=== PATIENT | male | born 2000 | race Caucasian/White ===

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

== ENCOUNTER 2022-05-08 08:18 | Emergency (ER) | payer OTHER, SELFPAY ==
[2022-05-08 08:19] VITALS: BP 121/79; PULSE 92; RESP 17; TEMP 36.7; O2SAT 100; BMI 17.6
--- NOTE | 2022-05-08 08:31 | EDS_ITS ---
HPI History of Present Illness Chief Complaint: Nausea/Vomiting Informant: patient and parent Narrative Narrative: Patient presents with nausea vomiting that started . He initially had diarrhea with this but that seems to have calm down. Last night he was feeling better. He is able to get some chicken noodle soup in. It seemed to be well. But now this morning he vomited again. No blood. He states he has no pain in the abdomen at all. No urinary symptoms. He has had subjective hot cold feelings but no measured fever. No cough congestion or myalgias. No known exposures to any illness. Mother is also concerned because his appetite has been down for a while. He is lost about 10 pounds over some intervening months. He states he is just not that hungry a lot so he just does not eat a lot. No vomiting or binging and purging. No [id number] meds supplements vitamins etc. PFSH PFSH Medical History no medical history Home Medications ondansetron 4 mg disintegrating tablet 4 mg PO Q8H PRN nausea and vomiting #10 tabs 05/08/22 [Rx Last Taken Unknown] Allergy/AdvReac Type Severity Reaction Status Date / Time No Known Allergies Allergy Verified 05/08/22 08:18 Surgical History no surgical history Social History Smoking Status: Never smoker ROS ROS ED Constitutional Constitutional ED: Reports subjective; Denies fever(s) ENT ENT ED: Denies rhinorrhea or sore throat Cardiovascular Cardiovascular: Denies chest pain Respiratory/Chest Respiratory/Chest: Denies cough or dyspnea Gastrointestinal Gastrointestinal: Reports diarrhea, nausea and vomiting; Denies abdominal pain or melena Genitourinary Genitourinary ED: Denies dysuria Musculoskeletal Musculoskeletal: Denies myalgias Integumentary Denies rash Endocrine Endocrinology: Denies polydipsia or polyuria Hematologic/Lymphatic Hematologic/Lymphatic: Denies anemia Allergic/Immunologic Allergic/Immunologic ED: Denies urticaria EXAM Physical Exam Const Vital Signs: 05/08/22 08:19 Temperature 98.0 F Temperature Source Temporal Pulse Rate 92 Respiratory Rate 17 Blood Pressure 121/79 H Blood Pressure Mean 93 Pulse Ox 100 Oxygen Delivery Method Room Air Positive well nourished and well developed; Negative for cachectic General Appearance ED: well developed and NAD; Negative for cachectic, cyanotic or pallor Nutritional Appearance: Negative for cachectic HEENT Reports dry mucous membranes HEENT Narrative: Very mildly dry mucous membranes. Mouth ED: Yes dry mucous membranes Mouth: dry mucous membranes Eyes General Eye ED: Negative for pale conjunctiva or scleral icterus Neck supple Chest Wall inspection of chest normal Resp normal respiratory effort Auscultation: Negative for rales, rhonchi or wheezes Cardio regular rate and regular rhythm GI normal to inspection, nondistended, normoactive bowel sounds, non-tender and non-distended; Negative for hepatosplenomegaly Back/Spine no CVA tenderness Extremity normal to inspection General Extremety ED: Negative for edema or tenderness General Extremity: Negative for edema Neuro Sensorium / Orientation: alert Psych mental status grossly normal Skin General Skin Exam: elasticity normal; Negative for jaundice or pallor MDM MDM MDM Narrative Medical decision making narrative: Patient CBC is normal. Electrolytes show no marked abnormalities. Creatinine is little higher than 1 would normally expect for someone his age. Total bili was a little bit high but rest of liver function tests were not elevated. Patient is feeling better. I think we can get him home. I think he does need follow-up with his primary physician for evaluation of his overall decreased appetite that has been going on for some months. However, I think his presentation today is more likely related to a viral illness. He had subjective fevers relatively quick onset slight improvement. I will get him Zofran. We discussed reasons to return. Lab Data Attestation: I reviewed the patient's lab results. Labs: Laboratory Results - last 24 hr 05/08/22 05/08/22 08:36 08:36 WBC 10.5 RBC 5.08 Hgb 15.8 Hct 45.4 MCV 89.4 MCH 31.1 MCHC 34.8 RDW Std Deviation 40.2 RDW Coeff of Chin 12.3 Plt Count 396 MPV 8.9 Immature Gran % (Auto) 0.400 Neut % (Auto) 75.7 H Lymph % (Auto) 18.4 L [place] % (Auto) 5.2 Eos % (Auto) 0.1 Baso % (Auto) 0.2 Absolute Neuts (auto) 7.9 H Absolute Lymphs (auto) 1.93 Nucleated RBC % 0 Sodium 135 L Potassium 3.8 Chloride 99 Carbon Dioxide 27.0 Anion Gap 9 BUN 17 Creatinine 1.13 Estim Creat Clear Calc 85.66 Est GFR (MDRD) Af Amer 107 Est GFR (MDRD) Non-Af 88 BUN/Creatinine Ratio 15.0 Glucose 107 H Calcium 9.8 Total Bilirubin 1.30 H AST 13 L ALT 13 L Alkaline Phosphatase 66 Total Protein 8.1 Albumin 4.7 Globulin 3.4 Albumin/Globulin Ratio 1.4 Discharge Plan Triage Chief Complaint: Nausea/Vomiting ED Provider: Gurmeet Damico Dx/Rx/DC Orders Clinical Impression: Nausea & vomiting, Mild dehydration Instructions: ED Vomiting (Adult) Prescriptions: New ondansetron 4 mg tablet,disintegrating 4 mg PO Q8H PRN (Reason: nausea and vomiting) Qty: 10 0RF Primary Care Provider: Corie Edwards Referrals: Corie Edwards MD [Primary Care Provider] - 3-5 Days Disposition Disposition: Home, Self Care
[2022-05-08] MEDS: Ondansetron 4 MG/2 ML Vial IV (08:39)
[2022-05-08] MEDS: 0.9% Normal Saline 1,000 ML 1000 ML IV (08:39)
[2022-05-08 08:55] LABS: Absolute Lymphocyte Count 1.93 X10^3/uL (0.83-4.51); Absolute Neutrophil Count 7.9 X10^3/uL (2.0-7.7); Basophil# 0.02 X10^3/uL; Basophil% 0.2 % (0-1); Eosinophil# 0.01 X10^3/uL; Eosinophils% 0.1 % (0-5); Hematocrit 45.4 % (40-54); Hemoglobin 15.8 g/dL (13.0-16.5); Lymphocyte # 1.93 X10^3/ul (0.83-4.51); Lymphocyte % 18.4 % (19-41); Mean Corp Hgb Conc 34.8 g/dL (32-36); Mean Corpuscular Hgb 31.1 pg (27.0-32.0); Mean Corpuscular Volume 89.4 fL (80-94); Mean Platelet Vol. 8.9 fl (6.2-12.0); Monocyte# 0.55 X10^3/uL; Monocyte% 5.2 % (0-10); NRBC Flagged by Analyzer 0 % (0-5); Neutrophil # 7.93 X10^3/uL (2.7-7.7); Neutrophil % 75.7 % (47-70); Platelet Count 396 K/mm3 (150-450); RBC Distribution Width CV 12.3 % (11.6-14.6); RBC Distribution Width SD 40.2 fl (35.1-43.9); Red Blood Count 5.08 M/mm3 (4.6-6.2); White Blood Count 10.5 K/mm3 (4.4-11.0)
[2022-05-08 09:10] LABS: ALB/GLOB Ratio 1.4 RATIO (0.9-2.4); AST(SGOT) 13 U/L (15-37); Alanine Aminotransfer ALT/SGPT 13 U/L (16-61); Albumin, Serum 4.7 g/dL (3.2-5.0); Alkaline Phosphatase 66 U/L (45-117); Anion Gap 9 (5-15); BUN 17 mg/dL (7-18); Calcium,Total 9.8 mg/dL (8.5-10.1); Chloride 99 mmol/L (98-107); Creatinine, Serum 1.13 mg/dL (0.70-1.30); EST Glomerular Filtration Rate 88 mL/min (>60); Est Glom Filt Rate - Afr Amer 107 mL/min (>60); Estimated Creatinine Clearance 85.66 ml/min; Globulin 3.4 g/dL (2.2-4.2); Glucose 107 mg/dL (74-106); Potassium 3.8 mmol/L (3.5-5.1); Protein, Total 8.1 g/dL (6.4-8.2); Sodium Level 135 mmol/L (136-145)
== END 2022-05-08 10:24 | disposition home or self-care (01) ==
PROVIDERS: Emergency Provider Emergency Medicine; PCP Pediatrics; Visit Provider Emergency Medicine
DX: R11.2 Nausea with vomiting, unspecified (principal); E86.0 Dehydration
CPT/HCPCS: 80053; 85025; 96361; 96374; 99283; J7030; A4216; J2405

== ENCOUNTER 2022-10-03 14:48 | Emergency (ER) | payer OTHER, SELFPAY ==
[2022-10-03 14:48] VITALS: BP 122/97; PULSE 122; RESP 16; TEMP 36.3; O2SAT 98; BMI 16.7
[2022-10-03 14:55] VITALS: PULSE 84; RESP 18; O2SAT 96
[2022-10-03 15:18] VITALS: BP 118/100; BP 118/66; BP 118/82; PULSE 120; PULSE 81; PULSE 90
[2022-10-03 15:24] LABS: Color, Urine Yellow (Yellow); Glucose, Dipstick Normal (Normal); Leukocyte Esterase-Dipstick 25 /ul (Negative); Nitrite-Dipstick Negative (Negative); Occult Blood-Urine 250 /ul (Negative); Protein-Dipstick 15 mg/dl (Negative); Urine Bilirubin Dipstick Negative (Negative); Urine Clarity Cloudy (Clear); Urine Urobilinogen 4 mg/dl (Normal); Urine pH 6.5 (5.0 - 8.0)
[2022-10-03 15:25] LABS: Absolute Lymphocyte Count 1.64 X10^3/uL (0.83-4.51); Absolute Neutrophil Count 7.2 X10^3/uL (2.0-7.7); Basophil# 0.03 X10^3/uL; Basophil% 0.3 % (0-1); Eosinophil# 0.01 X10^3/uL; Eosinophils% 0.1 % (0-5); Hematocrit 46.8 % (40-54); Hemoglobin 16.3 g/dL (13.0-16.5); Lymphocyte # 1.64 X10^3/ul (0.83-4.51); Lymphocyte % 17.4 % (19-41); Mean Corp Hgb Conc 34.8 g/dL (32-36); Mean Corpuscular Hgb 30.5 pg (27.0-32.0); Mean Corpuscular Volume 87.6 fL (80-94); Mean Platelet Vol. 8.7 fl (6.2-12.0); Monocyte# 0.51 X10^3/uL; Monocyte% 5.4 % (0-10); NRBC Flagged by Analyzer 0 % (0-5); Neutrophil # 7.17 X10^3/uL (2.7-7.7); Neutrophil % 76.4 % (47-70); Platelet Count 405 K/mm3 (150-450); RBC Distribution Width CV 12.2 % (11.6-14.6); RBC Distribution Width SD 38.9 fl (35.1-43.9); Red Blood Count 5.34 M/mm3 (4.6-6.2); White Blood Count 9.4 K/mm3 (4.4-11.0)
[2022-10-03 15:32] LABS: Ketone-Dipstick 150 mg/dl (Negative)
[2022-10-03 15:35] LABS: Amorphous Sediment 1+; Bacteria 1+ /hpf (None Seen); Mucous, Urine RARE /hpf (<or=2+); Red Blood Cells-Urine 5-10 SEEN /hpf (0-5); Squamous Epithelial Cells - UA 0-5 SEEN /hpf (0-5); White Blood Cells 0-5 SEEN /hpf (0-5)
[2022-10-03 15:36] LABS: Erythrocyte Sedimentation Rate 2 mm/hr (0-20)
[2022-10-03 15:43] LABS: ALB/GLOB Ratio 1.5 RATIO (0.9-2.4); AST(SGOT) 16 U/L (15-37); Alanine Aminotransfer ALT/SGPT 15 U/L (16-61); Albumin, Serum 4.7 g/dL (3.2-5.0); Alkaline Phosphatase 53 U/L (45-117); Anion Gap 8 (5-15); BUN 10 mg/dL (7-18); BUN/Creat Ratio 9.4 RATIO (10-20); Calcium,Total 9.2 mg/dL (8.5-10.1); Chloride 99 mmol/L (98-107); Creatinine, Serum 1.06 mg/dL (0.70-1.30); EST Glomerular Filtration Rate 95 mL/min (>60); Est Glom Filt Rate - Afr Amer 115 mL/min (>60); Globulin 3.2 g/dL (2.2-4.2); Glucose 91 mg/dL (74-106); Potassium 3.5 mmol/L (3.5-5.1); Protein, Total 7.9 g/dL (6.4-8.2); Sodium Level 135 mmol/L (136-145)
--- NOTE | 2022-10-03 15:45 | EX.ED.DYSGE1 ---
HPI History of Present Illness Chief Complaint: Nausea/Vomiting Detail of Chief Complaint: Nausea and vomiting x11 days Informant: patient and parent Onset/Context/Timing Onset: Days Context: Sudden Onset Timing: Intermittent Quality: Nausea and vomiting 5 times per day worse in the morning Location: GI Current Severity: Mild Maximum Severity: Moderate Worsened by: Attempt to eat or drink anything Relieved by: Nothing Associated Symptoms Associated Symptoms: 30 pound weight loss over the past 1 to 2 months, unintentional Narrative Narrative: Patient is a 21-year-old male who presents because has had nausea and vomiting approximately 5 times per day for the last 11 days. Last time he had anything to eat was greater than 24 hours ago. He does complain of thirst and dry mouth. He does endorse occasional orthostatic symptoms. He states his urine was dark is not as dark. He denies change in color of stool, caliber or consistency. He states today he has some left-sided abdominal pain. There is no history of Crohn's or ulcerative colitis. He denies fever, chills but does endorse night sweats. As previously stated he has had a 30 pound unintentional weight loss over the past 1 to 2 months. He denies headache, visual, ocular auditory symptoms. He denies rhinorrhea, congestion, postnasal drainage sore throat. He denies chest pain, cough or shortness of breath. Denies dyspnea on exertion. He denies intolerance to greasy or fried foods. He denies paresthesia, anesthesia or motor weakness. Prior similar symptoms: No Recent Illness/Hospitalization: No PFSH PFSH Medical History no medical history no medical history Home Medications ondansetron 4 mg disintegrating tablet 4 mg PO Q8H PRN PRN Nausea #10 tabs 10/03/22 [Rx Last Taken Unknown] Allergy/AdvReac Type Severity Reaction Status Date / Time No Known Allergies Allergy Verified 05/08/22 08:18 Surgical History no surgical history no surgical history Social History (Updated 10/03/22 @ 15:[address] Elliot Palacios MD) household members: family Smoking Status: Never smoker alcohol intake: current alcohol intake frequency: holidays/special occasions only substance use type: does not use ROS ROS ED Constitutional Constitutional ED: Reports sweats and weight loss; Denies chills, fever(s) or subjective Eyes Eyes: Denies blurry vision, change in vision or diplopia ENT ENT ED: Denies ear pain, rhinorrhea or sore throat Cardiovascular Cardiovascular: Denies chest pain, orthopnea, palpitations or racing heartbeat Respiratory/Chest Respiratory/Chest: Denies cough, dyspnea, dyspnea on exertion or orthopnea Gastrointestinal Gastrointestinal: Reports abdominal pain, nausea and vomiting; Denies constipation, diarrhea or melena Genitourinary Genitourinary ED: Denies dysuria, hematuria or urinary frequency Musculoskeletal Musculoskeletal: Reports myalgias; Denies arthralgias, back pain or neck pain Integumentary Denies abscess, Abrasions or rash Neurologic Neurologic: Denies headache(s) or paresthesias Psychiatric Psychiatric: Denies anxiety or depression Endocrine Endocrinology: Denies cold intolerance or heat intolerance Hematologic/Lymphatic Hematologic/Lymphatic: Denies easy bleeding, easy bruising or lymphadenopathy EXAM Physical Exam Const Vital Signs: 10/03/22 14:48 10/03/22 14:55 10/03/22 15:18 Temperature 97.4 F L Temperature Source Temporal Pulse Rate 122 H 84 Pulse Rate [Lying] 81 Pulse Rate [Sitting (for 1 minute prior to obtaining)] 90 Pulse Rate [Standing (for 1 minute prior to obtaining)] 120 H Respiratory Rate 16 18 Blood Pressure 122/97 H Blood Pressure [Lying] 118/66 Blood Pressure [Sitting (for 1 minute prior to obtaining)] 118/82 H Blood Pressure [Standing (for 1 minute prior to obtaining)] 118/100 H Blood Pressure Mean 105 Blood Pressure Mean [Lying] 83 Blood Pressure Mean [Sitting (for 1 minute prior to obtaining)] 94 Blood Pressure Mean [Standing (for 1 minute prior to obtaining)] 106 Pulse Ox 98 96 Oxygen Delivery Method Room Air Room Air 10/03/22 16:01 10/03/22 17:05 Temperature Temperature Source Pulse Rate 70 61 Pulse Rate [Lying] Pulse Rate [Sitting (for 1 minute prior to obtaining)] Pulse Rate [Standing (for 1 minute prior to obtaining)] Respiratory Rate 16 14 Blood Pressure 116/79 130/92 H Blood Pressure [Lying] Blood Pressure [Sitting (for 1 minute prior to obtaining)] Blood Pressure [Standing (for 1 minute prior to obtaining)] Blood Pressure Mean 91 104 Blood Pressure Mean [Lying] Blood Pressure Mean [Sitting (for 1 minute prior to obtaining)] Blood Pressure Mean [Standing (for 1 minute prior to obtaining)] Pulse Ox 99 99 Oxygen Delivery Method Room Air Room Air Positive well nourished, well developed and cachectic; Negative for obese, contractures or unkempt General Appearance ED: well developed, cachectic and NAD; Negative for unkempt, contractures, cyanotic, diaphoretic or pallor Nutritional Appearance: cachectic; Negative for obese HEENT Reports dry mucous membranes HEENT Narrative: Head is atraumatic normocephalic. Ears normal. TMs normal. Nares patent. Mucosa dry. Uvula midline. No deviation or protrusion. Mouth ED: Yes dry mucous membranes Mouth: dry mucous membranes Eyes PERRL and EOMs intact bilaterally General Eye ED: Negative for pale conjunctiva or scleral icterus Neck no lymphadenopathy, supple and no JVD Chest Wall inspection of chest normal and palpation of chest normal Resp normal respiratory effort and clear to auscultation bilaterally Cardio regular rhythm, S1 normal heart sound, S2 normal heart sound and no murmurs Rate: tachycardic GI normal to inspection, nondistended, normoactive bowel sounds, non-tender, non-distended and no masses; Negative for hepatosplenomegaly GI Narrative: Abdomen is scaphoid. There is no evidence of hernia. Auscultation: hypoactive bowel sounds Palpation: soft Back/Spine no CVA tenderness Extremity normal to inspection Extremity Narrative: Palpable distal pulses, which are General Extremety ED: Negative for edema or tenderness General Extremity: Negative for edema Neuro oriented x3, CN's II-XII intact bilaterally and no sensory deficits noted Neuro Narrative: There is no dysmetria. Sensorium / Orientation: alert Motor Exam: strength 5/5 throughout Psych Appearance: Negative for unkempt Skin no rashes or lesions noted, no wounds and skin turgor normal General Skin Exam: elasticity normal; Negative for jaundice or pallor MDM MDM MDM Narrative Medical decision making narrative: Patient presents with unintentional weight loss with nausea and vomiting for 11 days. Clinically patient appears dehydrated. Urine is positive for ketones. Patient was treated with D5 half-normal saline wide open. Comprehensive metabolic panel was obtained to assess liver enzymes, renal function, electrolytes. CBC to assess white count and rule out anemia. ESR was obtained because of concern for potential neoplasm. Patient nausea improved markedly after Zofran. He feels better after the liter of fluid as well. He was informed that a CAT scan without ordered because concern for radiation his age and in my opinion he needs to see GI and possible scope. Lab Data Attestation: I reviewed the patient's lab results. Lab results narrative: CBC is unremarkable. Comprehensive metabolic panel reveals slight elevation of sodium of 135 and total bili of 110. Labs: Laboratory Results - last 24 hr 10/03/22 10/03/22 10/03/22 15:10 15:11 15:11 WBC 9.4 RBC 5.34 Hgb 16.3 Hct 46.8 MCV 87.6 MCH 30.5 MCHC 34.8 RDW Std Deviation 38.9 RDW Coeff of Chin 12.2 Plt Count 405 MPV 8.7 Immature Gran % (Auto) 0.400 Neut % (Auto) 76.4 H Lymph % (Auto) 17.[address] [place] % (Auto) 5.4 Eos % (Auto) 0.1 Baso % (Auto) 0.3 Absolute Neuts (auto) 7.2 Absolute Lymphs (auto) 1.64 Nucleated RBC % 0 ESR 2 Sodium 135 L Potassium 3.5 Chloride 99 Carbon Dioxide 28.0 Anion Gap 8 BUN 10 Creatinine 1.06 Estim Creat Clear Calc 86.30 Est GFR (MDRD) Af Amer 115 Est GFR (MDRD) Non-Af 95 BUN/Creatinine Ratio 9.4 L Glucose 91 Calcium 9.2 Total Bilirubin 1.10 H AST 16 ALT 15 L Alkaline Phosphatase 53 Total Protein 7.9 Albumin 4.7 Globulin 3.2 Albumin/Globulin Ratio 1.5 Urine Color Yellow Urine Clarity Cloudy Urine pH 6.5 Ur Specific [place] 1.020 Urine Protein 15 H Urine Glucose (UA) Normal Urine Ketones 150 A* Urine Occult Blood 250 H Urine Nitrite Negative Urine Bilirubin Negative Urine Urobilinogen 4 H Ur Leukocyte Esterase 25 H Urine RBC 5-10 SEEN Urine WBC 0-5 SEEN Ur Squamous Epith Cells 0-5 SEEN Amorphous Sediment 1+ Urine Bacteria 1+ Urine Mucus RARE Discharge Plan Triage Chief Complaint: Nausea/Vomiting ED Provider: Elliot Palacios Dx/Rx/DC Orders Clinical Impression: Unintentional weight loss of 7.5% body weight or less within 3 months, Dehydration, moderate, Ketosis, Nausea & vomiting, Sinus tachycardia Instructions: ED Vomiting (Adult) Prescriptions: New ondansetron [ondansetron] 4 mg tablet,disintegrating 4 mg PO Q8H PRN PRN (Reason: Nausea) Qty: 10 0RF Primary Care Provider: Corie Edwards Referrals: Corie Edwards MD [Primary Care Provider] - 3-5 Days Disposition Disposition: Home, Self Care
[2022-10-03] MEDS: Dext 5%-0.45% NS 1,000 ML 1000 ML IV (15:58)
[2022-10-03 16:01] VITALS: BP 116/79; PULSE 70; RESP 16; O2SAT 99
[2022-10-03] MEDS: Ondansetron 4 MG/2 ML Vial IV (17:03)
[2022-10-03 17:05] VITALS: BP 130/92; PULSE 61; RESP 14; O2SAT 99
== END 2022-10-03 18:26 | disposition home or self-care (01) ==
PROVIDERS: Emergency Provider Emergency Medicine; PCP Pediatrics; Visit Provider Emergency Medicine
DX: R11.2 Nausea with vomiting, unspecified (principal); E88.89 Other specified metabolic disorders; R63.4 Abnormal weight loss; E86.0 Dehydration; R00.0 Tachycardia, unspecified
CPT/HCPCS: 80053; 81001; 85025; 85652; 96361; 96374; 99284; A4216; J2405; J7799

== ENCOUNTER 2022-10-27 11:51 | Emergency (ER) | payer OTHER, SELFPAY ==
[2022-10-27 11:52] VITALS: BP 128/84; PULSE 86; RESP 16; TEMP 36.1; O2SAT 100; BMI 17.9
[2022-10-27] MEDS: 0.9% Normal Saline 1,000 ML 1000 ML IV (12:00)
--- NOTE | 2022-10-27 12:23 | EX.ED.DYSGE1 ---
HPI History of Present Illness Chief Complaint: Nausea/Vomiting Informant: patient and parent Narrative Narrative: Recurrent nausea vomiting for the past 4 days. May keep things down. Normal bowel movements passing gas. No abdominal surgery history. Mother with history of IBS. Denies recreational drug use including THC. Occasional alcohol once every 6 months. He was seen last month for similar with vomiting for 11 days clinically was dehydrated symptomatically improved with Zofran and fluids. He states he was told to see his PCP follow-up with GI. He states new doctor cannot get in till November 30. GI was not given for follow-up. No allergies. No urinary symptoms. No fevers. No current abdominal pain. Prior similar symptoms: Yes PFSH PFSH Home Medications ondansetron 4 mg disintegrating tablet 4 mg PO Q8H PRN PRN Nausea #10 tabs 10/03/22 [Rx Last Taken Unknown] ondansetron 4 mg disintegrating tablet 4 mg PO Q6H PRN nausea and vomiting #20 tabs 10/27/22 [Rx Last Taken Unknown] Allergy/AdvReac Type Severity Reaction Status Date / Time No Known Allergies Allergy Verified 10/27/22 11:54 Social History household members: family Smoking Status: Current every day smoker tobacco type: e-cigarettes alcohol intake: current alcohol intake frequency: holidays/special occasions only substance use type: does not use ROS ROS ED Constitutional Constitutional ED: Denies chills, fever(s) or sweats Eyes Eyes: Denies change in vision ENT ENT ED: Denies dysphagia or sore throat Cardiovascular Cardiovascular: Denies chest pain, leg edema, palpitations or racing heartbeat Respiratory/Chest Respiratory/Chest: Denies cough, dyspnea or dyspnea on exertion Gastrointestinal Gastrointestinal: Reports nausea and vomiting; Denies abdominal pain or diarrhea Genitourinary Genitourinary ED: Denies dysuria, hematuria or urinary frequency Musculoskeletal Musculoskeletal: Denies back pain, extremity pain or neck pain Integumentary Denies rash or wounds Neurologic Neurologic: Denies headache(s), paresthesias or weakness EXAM Physical Exam Const Vital Signs: 10/27/22 11:52 10/27/22 14:28 Temperature 97 F L Temperature Source Temporal Pulse Rate 86 Respiratory Rate 16 16 Blood Pressure 128/84 H Blood Pressure Mean 98 Pulse Ox 100 Oxygen Delivery Method Room Air Positive well nourished and well developed General Appearance ED: well developed and NAD HEENT Reports dry mucous membranes normocephalic and atraumatic Mouth ED: Yes dry mucous membranes Mouth: dry mucous membranes Eyes PERRL, EOMs intact bilaterally and conjunctivae normal General Eye ED: Yes normal appearance of both eyes Neck no lymphadenopathy and supple General: Negative for tenderness Chest Wall Chest: Negative for tenderness Resp normal respiratory effort and normal air movement Effort and Inspection: symmetric chest movement; Negative for respiratory distress Cardio regular rate, regular rhythm and no murmurs Peripheral Pulses: pulses 2+ throughout GI normal to inspection, nondistended, normoactive bowel sounds and non-tender Palpation: Negative for guarding or rebound tenderness present Back/Spine no CVA tenderness and no thoracic nor lumbar tenderness Extremity normal to inspection General Extremety ED: Negative for edema or tenderness General Extremity: Negative for edema Neuro oriented x3 and no sensory deficits noted Sensorium / Orientation: awake and alert Skin no rashes or lesions noted and no wounds MDM MDM MDM Narrative Medical decision making narrative: Patient clinically dry mucosal membranes. Soft abdomen. Given IV fluids electrolytes were checked which are normal. Given IV Zofran. Symptoms were improving on reevaluation. He is able tolerate p.o. fluids. Waiting for urine for collection. Clinical improvement however fluid is speak with GI Dr. Friend Due to recurrent symptoms for close outpatient follow-up. Was given information for follow-up. Prescription for Zofran sent to his pharmacy. After discharge, no urine with blood and leukocytes however asymptomatic. Talk screen did return with THC for which she declined using. This is a likely possibility that can cause his symptoms. However with records noting 30 pound weight loss from last visit, he would likely still need further outpatient work-up. Lab Data Attestation: I reviewed the patient's lab results. Labs: Laboratory Results - last 24 hr 10/27/22 10/27/22 10/27/22 12:40 14:05 14:05 Sodium 135 L Potassium 3.8 Chloride 101 Carbon Dioxide 27.0 Anion Gap 7 BUN 13 Creatinine 0.90 Estim Creat Clear Calc 105.00 Est GFR (MDRD) Af Amer 139 Est GFR (MDRD) Non-Af 114 BUN/Creatinine Ratio 14.5 Glucose 108 H Calcium 9.3 Urine Color Yellow Urine Clarity Cloudy Urine pH 7.0 Ur Specific [place] 1.015 Urine Protein 15 H Urine Glucose (UA) Normal Urine Ketones 50 H Urine Occult Blood 250 H Urine Nitrite Negative Urine Bilirubin Negative Urine Urobilinogen 1 H Ur Leukocyte Esterase 25 H Urine Opiates Screen NEGATIVE Urine Methadone Screen NEGATIVE Ur Barbiturates Screen NEGATIVE Ur Phencyclidine Scrn NEGATIVE Ur Amphetamines Screen NEGATIVE MDMA (Ecstasy) Screen NEGATIVE U Benzodiazepines Scrn NEGATIVE Urine Cocaine Screen NEGATIVE U Cannabinoids Screen POSITIVE H Ur Drug Screen Comment Discharge Plan Triage Chief Complaint: Nausea/Vomiting ED Provider: Fahad Munoz Dx/Rx/DC Orders Clinical Impression: Nausea and vomiting, Dehydration Prescriptions: New ondansetron 4 mg tablet,disintegrating 4 mg PO Q6H PRN (Reason: nausea and vomiting) Qty: 20 0RF No Action ondansetron [ondansetron] 4 mg tablet,disintegrating 4 mg PO Q8H PRN PRN (Reason: Nausea) Qty: 10 0RF Stand Alone Forms: ED Work / School Excuse Primary Care Provider: Nitin Ronquillo Referrals: Nitin Ronquillo MD [Primary Care Provider] - Juan Manuel Mclain DO [Med Staff - Active Staff] - 1 Week Activity Restrictions/Additional Instructions: Discussed with Dr. Mclain from the emergency department to be seen as an outpatient. Call for follow-up. Continue oral fluids Zofran as needed. Return if any worsening symptoms. Disposition Disposition: Home, Self Care Discharge Date/Time: 10/27/22 14:29
[2022-10-27 13:00] LABS: Anion Gap 7 (5-15); BUN 13 mg/dL (7-18); BUN/Creat Ratio 14.5 RATIO (10-20); Calcium,Total 9.3 mg/dL (8.5-10.1); Chloride 101 mmol/L (98-107); EST Glomerular Filtration Rate 114 mL/min (>60); Est Glom Filt Rate - Afr Amer 139 mL/min (>60); Glucose 108 mg/dL (74-106); Potassium 3.8 mmol/L (3.5-5.1); Sodium Level 135 mmol/L (136-145)
[2022-10-27] MEDS: Ondansetron 4 MG/2 ML Vial IV (13:32)
[2022-10-27 14:11] LABS: Bacteria 0 SEEN /hpf (None Seen); Mucous, Urine 0 SEEN /hpf (<or=2+); Red Blood Cells-Urine 0 SEEN /hpf (0-5); Squamous Epithelial Cells - UA 0 SEEN /hpf (0-5); White Blood Cells 0 SEEN /hpf (0-5)
[2022-10-27 14:28] VITALS: RESP 16
[2022-10-27 14:31] LABS: Color, Urine Yellow (Yellow); Glucose, Dipstick Normal (Normal); Ketone-Dipstick 50 mg/dl (Negative); Leukocyte Esterase-Dipstick 25 /ul (Negative); Nitrite-Dipstick Negative (Negative); Occult Blood-Urine 250 /ul (Negative); Protein-Dipstick 15 mg/dl (Negative); Specific Gravity, Urine 1.015 (1.002-1.030); Urine Bilirubin Dipstick Negative (Negative); Urine Clarity Cloudy (Clear); Urine Urobilinogen 1 mg/dl (Normal)
[2022-10-27 14:32] LABS: Amphetamine Urine VISTA NEGATIVE (<1000 ng/mL); Barbiturate Urine VISTA NEGATIVE (< 200 ng/mL); Benzodiazepine Urine VISTA NEGATIVE (< 200 ng/mL); Cocaine Urine VISTA NEGATIVE (< 300 ng/mL); Ecstacy Urine VISTA NEGATIVE (< 500 ng/mL); Methadone Urine VISTA NEGATIVE (< 300 ng/mL); PCP Urine VISTA NEGATIVE (< 25 ng/mL); THC Urine VISTA POSITIVE (< 50 ng/mL); Vista UDS pH Range 7
[2022-10-27 14:43] LABS: Amorphous Sediment 4+
== END 2022-10-27 14:29 | disposition home or self-care (01) ==
PROVIDERS: Emergency Provider Emergency Medicine; PCP Family Medicine; Visit Provider Emergency Medicine
DX: R11.2 Nausea with vomiting, unspecified (principal); E86.0 Dehydration; F17.290 Nicotine dependence, other tobacco product, uncomplicated
CPT/HCPCS: 80048; 80307; 81001; 96361; 96374; 99283; J7030; A4216; J2405

== ENCOUNTER → 2022-11-10 | Outpatient (CLI) | payer OTHER, SELFPAY ==
[2022-11-10 09:40] LABS: Bacteria 0 SEEN /hpf (None Seen); Mucous, Urine 0 SEEN /hpf (<or=2+); Squamous Epithelial Cells - UA 0 SEEN /hpf (0-5); White Blood Cells 0 SEEN /hpf (0-5)
[2022-11-10 12:47] LABS: Absolute Lymphocyte Count 2.24 X10^3/uL (0.83-4.51); Absolute Neutrophil Count 4.2 X10^3/uL (2.0-7.7); Basophil# 0.05 X10^3/uL; Basophil% 0.7 % (0-1); Eosinophil# 0.12 X10^3/uL; Eosinophils% 1.7 % (0-5); Hematocrit 42.1 % (40-54); Hemoglobin 14.4 g/dL (13.0-16.5); Lymphocyte # 2.24 X10^3/ul (0.83-4.51); Lymphocyte % 31.5 % (19-41); Mean Corp Hgb Conc 34.2 g/dL (32-36); Mean Corpuscular Hgb 31.4 pg (27.0-32.0); Mean Corpuscular Volume 91.7 fL (80-94); Mean Platelet Vol. 8.9 fl (6.2-12.0); NRBC Flagged by Analyzer 0 % (0-5); Neutrophil # 4.19 X10^3/uL (2.7-7.7); Neutrophil % 58.8 % (47-70); Platelet Count 374 K/mm3 (150-450); RBC Distribution Width CV 13.2 % (11.6-14.6); RBC Distribution Width SD 44.7 fl (35.1-43.9); Red Blood Count 4.59 M/mm3 (4.6-6.2); White Blood Count 7.1 K/mm3 (4.4-11.0)
[2022-11-10 12:51] LABS: Color, Urine Yellow (Yellow); Glucose, Dipstick Normal (Normal); Ketone-Dipstick Negative (Negative); Leukocyte Esterase-Dipstick Negative /ul (Negative); Nitrite-Dipstick Negative (Negative); Occult Blood-Urine 50 /ul (Negative); Protein-Dipstick Negative (Negative); Urine Bilirubin Dipstick Negative (Negative); Urine Clarity Cloudy (Clear); Urine Urobilinogen Normal (Normal)
[2022-11-10 13:06] LABS: Hemoglobin A1c 5.3 % (3.8-5.6); Red Blood Cells-Urine 0-5 SEEN /hpf (0-5)
[2022-11-10 13:29] LABS: ALB/GLOB Ratio 1.4 RATIO (0.9-2.4); AST(SGOT) 25 U/L (15-37); Alanine Aminotransfer ALT/SGPT 45 U/L (16-61); Albumin, Serum 4.3 g/dL (3.2-5.0); Alkaline Phosphatase 58 U/L (45-117); Anion Gap 9 (5-15); BUN 11 mg/dL (7-18); BUN/Creat Ratio 12.7 RATIO (10-20); Calcium,Total 9.5 mg/dL (8.5-10.1); Chloride 103 mmol/L (98-107); Creatinine, Serum 0.86 mg/dL (0.70-1.30); EST Glomerular Filtration Rate 120 mL/min (>60); Est Glom Filt Rate - Afr Amer 145 mL/min (>60); Glucose 109 mg/dL (74-106); Lipase 101 U/L (73-393); Potassium 4.3 mmol/L (3.5-5.1); Protein, Total 7.3 g/dL (6.4-8.2); Sodium Level 137 mmol/L (136-145)
== END | disposition home or self-care (01) ==
LOC: MFPLAB 09:37
PROVIDERS: PCP Family Medicine; Referring Provider Family Medicine; Visit Provider Family Medicine
DX: R10.9 Unspecified abdominal pain (principal); R73.09 Other abnormal glucose
CPT/HCPCS: 36415; 80053; 81001; 83036; 83690; 85025

== ENCOUNTER → 2022-11-16 | Outpatient (CLI) | payer OTHER, SELFPAY ==
[2022-11-16 12:32] LABS: Erythrocyte Sedimentation Rate 5 mm/hr (0-20)
[2022-11-16 13:06] LABS: ALB/GLOB Ratio 1.2 RATIO (0.9-2.4); AST(SGOT) 17 U/L (15-37); Alanine Aminotransfer ALT/SGPT 30 U/L (16-61); Albumin, Serum 4.2 g/dL (3.2-5.0); Alkaline Phosphatase 53 U/L (45-117); Anion Gap 6 (5-15); BUN 7 mg/dL (7-18); BUN/Creat Ratio 8.1 RATIO (10-20); CPK Total, Creatine Kinase 91 U/L (39-308); CRP < 2.90 mg/L (0.0-3.0); Calcium,Total 9.2 mg/dL (8.5-10.1); Chloride 106 mmol/L (98-107); Creatinine, Serum 0.86 mg/dL (0.70-1.30); EST Glomerular Filtration Rate 121 mL/min (>60); Est Glom Filt Rate - Afr Amer 146 mL/min (>60); Globulin 3.4 g/dL (2.2-4.2); Glucose 92 mg/dL (74-106); LDH 153 U/L (87-241); Potassium 3.7 mmol/L (3.5-5.1); Protein, Total 7.6 g/dL (6.4-8.2); Sodium Level 140 mmol/L (136-145)
[2022-11-17 14:08] LABS: Anti-Centromere B Ab <0.2 AI (0.0-0.9); Anti-Chromatin <0.2 AI (0.0-0.9); Anti-Jo <0.2 AI (0.0-0.9); Anti-Scleroderma-70 AB <0.2 AI (0.0-0.9); RNP Ab <0.2 AI (0.0-0.9); SJOGREN'S Anti-SS-A test < 0.2 AI (0.0-0.9); SJOGREN'S Anti-SS-B test < 0.2 AI (0.0-0.9); Smith Ab <0.2 AI (0.0-0.9)
[2022-11-17 16:09] LABS: Anti-dsDNA Ab <1 IU/mL (0-9); Endomysial Antibody IgA Negative (Negative)
[2022-11-17 20:59] LABS: Immunoglobulin A 124 mg/dL (90-386); t-Transglutaminase IgA <2 U/mL (0-3)
[2022-11-18 15:08] LABS: Albumin 4.1 g/dL (2.9-4.4); Alpha-1-Globulins 0.2 g/dL (0.0-0.4); Alpha-2-Globulins 0.8 g/dL (0.4-1.0); Cytoplasmic Ab (C-ANCA) <1:20 titer (Neg:<1:20); Immunoglobulin A 124 mg/dL (90-386); Immunoglobulin E 45 IU/mL (6-495); Immunoglobulin G 878 mg/dL (603-1613); Immunoglobulin M 210 mg/dL (20-172); PROEL- TOTAL PROTEIN 7.1 g/dL (6.0-8.5)
[2022-11-18 17:50] LABS: Aldolase 3.2 U/L (3.3-10.3); Perinuclear Ab (P-ANCA) <1:20 titer (Neg:<1:20)
== END | disposition home or self-care (01) ==
LOC: LAB 11:46
PROVIDERS: PCP Family Medicine; Visit Provider Internal Medicine Gastroenterology
DX: R11.2 Nausea with vomiting, unspecified (principal)
CPT/HCPCS: 36415; 80053; 82085; 82550; 82784; 82785; 83516; 83615; 84165; 85652; 86140; 86225; 86235; 86255; 86256; 86334

== ENCOUNTER → 2022-12-08 | Outpatient (CLI) | payer OTHER, SELFPAY ==
--- NOTE | 2022-12-08 10:31 | NM_ITS ---
CLINICAL: 22-year-old male with history of chronic nausea. SEMI-SOLID PHASE 99m Tc SULFUR COLLOID GASTRIC EMPTYING STUDY COMPARISON: None available FINDINGS: The patient was administered 1.0 mCi of 99m Tc sulfur colloid mixed with oatmeal and consumed per os. Image acquisitions in the anterior-posterior projections were obtained for 60 minutes. There is prompt visualization of the stomach. There is no gastroesophageal reflux identified. First order kinetics are maintained throughout the duration of the acquisitions. The T ? linear fit was calculated to be 63.83 minutes, (Normal: 12-56 minutes). NM/Gastric Emptying Study IMPRESSION: 1. ABNORMAL 99m Tc sulfur colloid semi-solid phase (oatmeal) gastric emptying imaging examination. A. There is delayed semi-solid phase gastric emptying compared to normal controls with maintained first order kinetics throughout all components of the examination. (Zaida et al, J Nucl Med Tech 38: 186, 2010). Electronically Signed: Mario Wong, at 22:25 EST ,
== END | disposition home or self-care (01) ==
PROVIDERS: PCP Family Medicine; Referring Provider Internal Medicine Gastroenterology; Visit Provider Internal Medicine Gastroenterology
DX: R11.2 Nausea with vomiting, unspecified (principal)
CPT/HCPCS: 78264; A9541

== ENCOUNTER 2022-12-31 07:33 | Emergency (ER) | payer OTHER, SELFPAY ==
[2022-12-31 07:34] VITALS: BP 137/98; PULSE 61; RESP 18; TEMP 36.4; O2SAT 100; BMI 17.4
--- NOTE | 2022-12-31 07:52 | EDS_ITS ---
HPI History of Present Illness Chief Complaint: Nausea/Vomiting Informant: patient Narrative Narrative: Patient is a 22-year-old male that denies any significant past medical history admits had this ongoing issue with nausea and vomiting presenting with nausea, vomiting and slight abdominal discomfort. He states for the past 3 days has not been able to keep anything down including water. His urine has been darker. He has a vague discomfort in his abdomen but denies any significant pain. Has not had a bowel in for the past 3 days. Is concerned for dehydration. Had 1 dose of Zofran right before coming in but is now out. Notes that he is not taken any Zofran over the past few days. States that the day before symptoms started he ate a significant amount but denies any other triggers. Has no abdominal surgical history. No family history of ulcerative colitis or Crohn's disease but his mother does have a history of IBS. Vapes nicotine but denies any marijuana use, alcohol use or other illicit drug use. Is following with GI and had a gastric emptying study 2 weeks ago and is scheduled for EGD sometime next month. He does not know the exact date. Denies any change in this episode compared to his prior episodes. Denies any fever, blood in his vomit or any other complaints at this time. Prior similar symptoms: Yes PFSH PFSH Home Medications ondansetron 4 mg disintegrating tablet 4 mg PO Q8H PRN PRN Nausea #10 tabs 10/03/22 [Rx Last Taken Unknown] ondansetron 4 mg disintegrating tablet 4 mg PO Q6H PRN nausea and vomiting #20 tabs 10/27/22 [Rx Last Taken Unknown] metoclopramide HCl 5 mg tablet (Reglan) 5 mg PO TID #20 tabs 12/31/22 [Rx Last Taken Unknown] pantoprazole 20 mg tablet,delayed release 20 mg PO DAILY #30 tabs 12/31/22 [Rx Last Taken Unknown] Allergy/AdvReac Type Severity Reaction Status Date / Time No Known Allergies Allergy Verified 10/27/22 11:54 Social History household members: family Smoking Status: Current every day smoker tobacco type: e-cigarettes alcohol intake: current alcohol intake frequency: holidays/special occasions only substance use type: does not use ROS ROS ED Constitutional Constitutional ED: Denies chills or fever(s) Cardiovascular Cardiovascular: Denies chest pain Respiratory/Chest Respiratory/Chest: Denies cough Gastrointestinal Gastrointestinal: Reports abdominal pain, nausea and vomiting; Denies diarrhea Genitourinary Genitourinary ED: Denies dysuria or hematuria Musculoskeletal Musculoskeletal: Denies arthralgias or myalgias Integumentary Denies rash Neurologic Neurologic: Denies headache(s) or weakness Hematologic/Lymphatic Hematologic/Lymphatic: Denies easy bleeding or easy bruising EXAM Physical Exam Const Vital Signs: 12/31/22 07:34 12/31/22 10:08 Temperature 97.6 F L Temperature Source Temporal Pulse Rate 61 79 Respiratory Rate 18 16 Blood Pressure 137/98 H 113/67 Blood Pressure Mean 111 82 Pulse Ox 100 98 Oxygen Delivery Method Room Air Room Air Positive well nourished and well developed General Appearance ED: well developed and NAD; Negative for pallor HEENT Reports dry mucous membranes Mouth ED: Yes dry mucous membranes Mouth: dry mucous membranes Eyes PERRL and EOMs intact bilaterally Neck supple Chest Wall inspection of chest normal and palpation of chest normal Resp normal respiratory effort and clear to auscultation bilaterally Cardio regular rate, regular rhythm and no murmurs GI non-tender and non-distended Inspection: Negative for abdominal distention Auscultation: hypoactive bowel sounds Palpation: soft; Negative for guarding Extremity normal to inspection Neuro oriented x3 Sensorium / Orientation: alert Motor Exam: Negative for general weakness Psych mental status grossly normal Skin no rashes or lesions noted and no wounds General Skin Exam: Negative for jaundice or pallor MDM MDM MDM Narrative Medical decision making narrative: Patient evaluated for nausea and vomiting. I differential includes acute dehydration, electrolyte abnormality, pancreatitis. Patient has had multiple visits for similar complaints. I did review his gastric emptying study on 12/08/2022 which did show delayed semisolid phase gastric emptying compared to normal controls with maintained first-order kinetics throughout all components of the examination. Patient appears mildly dehydrated but has normal vital signs. He does not appear to be in hypovolemic shock. He will be given IV fluid. Initially Zofran was ordered but then he states that he did take Zofran orally prior to arrival and that seems to help. We will hold at this time. Will check labs including CBC, CMP and lipase and reevaluate. Patient is now complain of some or nausea. He is given a dose of IV Reglan as his gastric emptying study did show some slowing. Case is discussed with GI, Dr. Mclain and I also reviewed his gastric emptying results. He recommends starting the patient on daily PPI as well as Reglan 5 mg 3 times daily. Patient be prescribed this. Patient then does complain of some mild jitteriness after receiving the Reglan and is ordered Benadryl however by the time the nurse came in with the Benadryl and his symptoms have resolved. Patient is able to take p.o. in the ER. He continues to have a benign abdominal exam. He has a mild leukocytosis which I suspect is reactive but no significant electrolyte abnormalities. At this time he will be discharged home with outpatient GI follow-up. Is given return precautions. Patient and mother agreeable with plan of care. Lab Data Labs: Laboratory Results - last 24 hr 12/31/22 12/31/22 07:54 07:54 WBC 15.1 H RBC 4.56 L Hgb 14.2 Hct 41.2 MCV 90.4 MCH 31.1 MCHC 34.5 RDW Std Deviation 42.1 RDW Coeff of Chin 12.8 Plt Count 416 MPV 9.1 Immature Gran % (Auto) 0.600 Neut % (Auto) 85.5 H Lymph % (Auto) 8.6 L Gillespie % (Auto) 5.2 Eos % (Auto) 0.0 Baso % (Auto) 0.1 Absolute Neuts (auto) 12.9 H Absolute Lymphs (auto) 1.30 Nucleated RBC % 0 Sodium 140 Potassium 3.7 Chloride 106 Carbon Dioxide 24.0 Anion Gap 10 BUN 13 Creatinine 0.85 Estim Creat Clear Calc 111.62 Est GFR (MDRD) Af Amer 147 Est GFR (MDRD) Non-Af 121 BUN/Creatinine Ratio 15.2 Glucose 131 H Calcium 9.6 Total Bilirubin 0.70 AST 13 L ALT 15 L Alkaline Phosphatase 63 Total Protein 7.9 Albumin 4.5 Globulin 3.4 Albumin/Globulin Ratio 1.3 Lipase 58 L Discharge Plan Triage Chief Complaint: Nausea/Vomiting ED Provider: Karena Jj Dx/Rx/DC Orders Clinical Impression: Nausea & vomiting Instructions: Gastroparesis, ED Vomiting (Adult) Prescriptions: New metoclopramide HCl [Reglan] 5 mg tablet 5 mg PO TID Qty: 20 0RF pantoprazole 20 mg tablet,delayed release (DR/EC) 20 mg PO DAILY Qty: 30 0RF No Action ondansetron [ondansetron] 4 mg tablet,disintegrating 4 mg PO Q8H PRN PRN (Reason: Nausea) Qty: 10 0RF ondansetron 4 mg tablet,disintegrating 4 mg PO Q6H PRN (Reason: nausea and vomiting) Qty: 20 0RF Primary Care Provider: Nitin Ronquillo Referrals: Nitin Ronquillo MD [Primary Care Provider] - Juan Manuel Mclain DO [Med Staff - Active Staff] - As Needed Activity Restrictions/Additional Instructions: Avoid eating large quantities of food at a time. Your gastric emptying study did show some slight slowing which needs further evaluation by the GI doctor. You have been started on Reglan to help with the nausea and vomiting as well as an antacid per the recommendation of Dr. Mclain. If you develop worsening abdominal pain, fever or progression of your symptoms please return to the emergency room. Disposition Disposition: Home, Self Care
[2022-12-31] MEDS: 0.9% Normal Saline 1,000 ML 1000 ML IV (07:54)
--- NOTE | 2022-12-31 08:00 | ED.RN ---
hold IV Zofran due to pt taking home dose prior to coming in per doctor order.
[2022-12-31 08:10] LABS: Absolute Neutrophil Count 12.9 X10^3/uL (2.0-7.7); Basophil# 0.01 X10^3/uL; Basophil% 0.1 % (0-1); Hematocrit 41.2 % (40-54); Hemoglobin 14.2 g/dL (13.0-16.5); Lymphocyte % 8.6 % (19-41); Mean Corp Hgb Conc 34.5 g/dL (32-36); Mean Corpuscular Hgb 31.1 pg (27.0-32.0); Mean Corpuscular Volume 90.4 fL (80-94); Mean Platelet Vol. 9.1 fl (6.2-12.0); Monocyte# 0.79 X10^3/uL; Monocyte% 5.2 % (0-10); NRBC Flagged by Analyzer 0 % (0-5); Neutrophil # 12.88 X10^3/uL (2.7-7.7); Neutrophil % 85.5 % (47-70); Platelet Count 416 K/mm3 (150-450); RBC Distribution Width CV 12.8 % (11.6-14.6); RBC Distribution Width SD 42.1 fl (35.1-43.9); Red Blood Count 4.56 M/mm3 (4.6-6.2); White Blood Count 15.1 K/mm3 (4.4-11.0)
[2022-12-31 08:16] LABS: BUN 13 mg/dL (7-18); Creatinine, Serum 0.85 mg/dL (0.70-1.30); EST Glomerular Filtration Rate 121 mL/min (>60); Estimated Creatinine Clearance 111.62 ml/min; Glucose 131 mg/dL (74-106)
[2022-12-31 08:17] LABS: ALB/GLOB Ratio 1.3 RATIO (0.9-2.4); AST(SGOT) 13 U/L (15-37); Alanine Aminotransfer ALT/SGPT 15 U/L (16-61); Albumin, Serum 4.5 g/dL (3.2-5.0); Alkaline Phosphatase 63 U/L (45-117); Anion Gap 10 (5-15); BUN/Creat Ratio 15.2 RATIO (10-20); Calcium,Total 9.6 mg/dL (8.5-10.1); Chloride 106 mmol/L (98-107); Est Glom Filt Rate - Afr Amer 147 mL/min (>60); Globulin 3.4 g/dL (2.2-4.2); Lipase 58 U/L (73-393); Potassium 3.7 mmol/L (3.5-5.1); Protein, Total 7.9 g/dL (6.4-8.2); Sodium Level 140 mmol/L (136-145)
[2022-12-31] MEDS: 0.9% Normal Saline 1,000 ML 999 ML IV (09:20)
[2022-12-31] MEDS: Metoclopramide 10 MG/2 ML Vial 5 MG IV (09:20)
[2022-12-31 10:08] VITALS: BP 113/67; PULSE 79; RESP 16; O2SAT 98
[2022-12-31 10:38] VITALS: BP 124/66; PULSE 59; RESP 16; O2SAT 99
== END 2022-12-31 10:39 | disposition home or self-care (01) ==
PROVIDERS: Emergency Provider Emergency Medicine; PCP Family Medicine; Visit Provider Emergency Medicine
DX: R11.2 Nausea with vomiting, unspecified (principal); F17.290 Nicotine dependence, other tobacco product, uncomplicated
CPT/HCPCS: 80053; 83690; 85025; 96361; 96374; 99283; J7030; A4216; J2405

== ENCOUNTER 2023-01-18 14:05 | Day surgery (SDC) | payer OTHER, SELFPAY ==
[2023-01-18] VITALS (9 sets, daily range): BP systolic 109–128; BP diastolic 63–84; PULSE 70–103; RESP 16–18; TEMP 36.6–36.9; O2SAT 97–100; BMI 18.3
[2023-01-18] MEDS: Lactated Ringers 1,000 ML 15 ML IV (14:35)
--- NOTE | 2023-01-18 15:30 | IMM_PTH ---
PATIENT: ALEXIS SANDERS LOC: EN U#:[id number] AGE/SX: 22/M ROOM: RE01/18/[address]: Dr. Juan Manuel Mclain DO : 2000 BED: DIS: 01/18/2023 SPEC #: [id number] RECD: 01/19/23 14:08 STATUS: ANT REYamel #: [id number] SUHAIL: 01/18/23 15:[address]: Juan Manuel Mclain DEPT: IMMUNOHISTOCHEMISTRY RECD BY: Tere Pelletier ENTERED: 01/19/23 14:08 SP TYPE: IMMUNO OTHR DR: Dr. Nitin Ronquillo MD Tissues: A - Stomach, NOS Procedures: H Pylori (initial) PHYSICIAN & INSTITUTION [place] [id number] SPECIMEN INFORMATION: Tissue Source: A ? Gastric biopsy Clinical Info: Nausea and vomiting Specimen Number: [id number] CPT code: 33628 METHODOLOGY: Deparaffinized sections of prefer/formalin-fixed tissue or PAP/DQ stained slides are incubated with monoclonal/polyclonal antibodies/oligonucleotide probes. Localization is made via biotin free immunoperoxidase method. Appropriate controls are performed and reacted as expected. Results on target cell population are indicated in the following table: RESULTS: ANTIBODY / CLONE RESULT Block A H Pylori (polyclonal) negative These tests were developed and their performance characteristics determined by [facility]. They may not have been cleared or approved by the U.[place]. Food and Drug Administration. The FDA has determined that such clearance or approval is not necessary. The above immunohistochemical/dualISH markers are ordered and reviewed by the Pathologist. INTERPRETATION: A. Gastric biopsy: Negative for Helicobacter pylori organisms. SJ:souleymane 01/20/2023
--- NOTE | 2023-01-18 15:30 | EGD_PTH ---
PATIENT: ALEXIS SANDERS LOC: EN U#:[id number] AGE/SX: 22/M ROOM: RE01/18/[address]: Dr. Juan Manuel Mclain DO : 2000 BED: DIS: 01/18/2023 SPEC #: [id number] RECD: 01/19/23 06:42 STATUS: ANT MARYANNE #: [id number] SUHAIL: 01/18/23 15:[address]: Juan Manuel Mclain DEPT: SURGICAL PATHOLOGY RECD BY: Rainer Edwards ENTERED: 01/19/23 08:03 SP TYPE: EGD BIOPSY BRUCE DR: Dr. Nitin Ronquillo MD Tissues: A - Gastric mucous membrane B - Duodenum, NOS Procedures: Surgery Specimen Level IV HEADER OPERATION: [place] [place] DIAGNOSIS: Nausea and vomiting TISSUE SUBMITTED: A ? Gastric biopsy, B - Duodenum MICROSCOPIC DIAGNOSIS A. Gastric body, biopsy: Mild gastritis. See microscopic description and comment. B. Duodenum, biopsy: Fragments of duodenal mucosa, no pathologic diagnosis. BERTHA:souleymane 01/20/2023 COMMENT A. The results of immunohistochemistry for Helicobacter pylori will be reported separately ([id number]). MICROSCOPIC DESCRIPTION Slides are reviewed. A. The specimen shows fragments of gastric mucosa with chronic inflammatory cell infiltrates in the lamina propria consisting of lymphocytes and plasma cells, consistent with mild chronic gastritis. GROSS DESCRIPTION A - Received in fixative is one container labeled with the patient's name and designated gastric biopsy. The specimen consists of two irregular fragments of light parker soft tissue that in aggregate measure 0.8 x 0.3 x 0.1 cm. The specimen is totally submitted in one cassette. B - Received in fixative is one container labeled with the patient's name and designated duodenum. The specimen consists of multiple irregular fragments of light parker soft tissue that in aggregate measure 0.8 x 0.5 x 0.1 cm. The specimen is totally submitted in one cassette. / BERTHA:souleymane 01/19/2023 TC:3 CPT: 80036 x2
--- NOTE | 2023-01-18 16:23 | HP.PCM_ITS ---
History and Physical Date of Admission: 01/18/23 22-year-old male that denies any significant past medical history admits had this ongoing issue with nausea and vomiting presenting with nausea, vomiting and slight abdominal discomfort.? He states for the past 3 days has not been able to keep anything down including water.? His urine has been darker.? He has a vague discomfort in his abdomen but denies any significant pain.? Has not had a bowel in for the past 3 days.? Is concerned for dehydration.? Had 1 dose of Zofran right before coming in but is now out.? Notes that he is not taken any Zofran over the past few days.? States that the day before symptoms started he ate a significant amount but denies any other triggers.? Has no abdominal surgical history.? No family history of ulcerative colitis or Crohn's disease but his mother does have a history of IBS.? Vapes nicotine but denies any marijuana use, alcohol use or other illicit drug use.? Is following with GI and had a gastric emptying study 2 weeks ago and is scheduled for EGD sometime next month.? He does not know the exact date.? Denies any change in this episode compared to his prior episodes.? Denies any fever, blood in his vomit or any other complaints at this time. Prior similar symptoms: Yes PFSH PFSH Home Medications ondansetron 4 mg disintegrating tablet 4 mg PO Q8H PRN PRN Nausea #10 tabs 10/03/22 [Rx Last Taken Unknown] ondansetron 4 mg disintegrating tablet 4 mg PO Q6H PRN nausea and vomiting #20 tabs 10/27/22 [Rx Last Taken Unknown] metoclopramide HCl 5 mg tablet (Reglan) 5 mg PO TID #20 tabs 12/31/22 [Rx Last Taken Unknown] pantoprazole 20 mg tablet,delayed release 20 mg PO DAILY #30 tabs 12/31/22 [Rx Last Taken Unknown] Allergy/AdvReac Type Severity Reaction Status Date / Time No Known Allergies Allergy ? ? Verified 10/27/22 11:54 Social History? household members:? family Smoking Status:? Current every day smoker tobacco type: e-cigarettes alcohol intake:? current alcohol intake frequency: holidays/special occasions only substance use type:? does not use ROS ROS ED Constitutional Constitutional ED: Denies chills or fever(s) Cardiovascular Cardiovascular: Denies chest pain Respiratory/Chest Respiratory/Chest: Denies cough Gastrointestinal Gastrointestinal: Reports abdominal pain, nausea and vomiting; Denies diarrhea Genitourinary Genitourinary ED: Denies dysuria or hematuria Musculoskeletal Musculoskeletal: Denies arthralgias or myalgias Integumentary Denies rash Neurologic Neurologic: Denies headache(s) or weakness Hematologic/Lymphatic Hematologic/Lymphatic: Denies easy bleeding or easy bruising EXAM Physical Exam Const Vital Signs: ? 12/31/22 07:34 12/31/22 10:08 Temperature 97.6 F L ? Temperature Source Temporal ? Pulse Rate 61 79 Respiratory Rate 18 16 Blood Pressure 137/98 H 113/67 Blood Pressure Mean 111 82 Pulse Ox 100 98 Oxygen Delivery Method Room Air Room Air Positive well nourished and well developed General Appearance ED: well developed and NAD; Negative for pallor HEENT Reports dry mucous membranes Mouth ED: Yes dry mucous membranes Mouth: dry mucous membranes Eyes PERRL and EOMs intact bilaterally Neck supple Chest Wall inspection of chest normal and palpation of chest normal Resp normal respiratory effort and clear to auscultation bilaterally Cardio regular rate, regular rhythm and no murmurs GI non-tender and non-distended Inspection: Negative for abdominal distention Auscultation: hypoactive bowel sounds Palpation: soft; Negative for guarding Extremity normal to inspection Neuro oriented x3 Sensorium / Orientation: alert Motor Exam: Negative for general weakness Psych mental status grossly normal Skin no rashes or lesions noted and no wounds General Skin Exam: Negative for jaundice or pallor MDM MDM MDM Narrative Medical decision making narrative: Patient evaluated for nausea and vomiting.? I differential includes acute dehydration, electrolyte abnormality, pancreatitis.? Patient has had multiple visits for similar complaints.? I did review his gastric emptying study on 12/08/2022 which did show delayed semisolid phase gastric emptying compared to normal controls with maintained first-order kinetics throughout all components of the examination. Patient appears mildly dehydrated but has normal vital signs.? He does not appear to be in hypovolemic shock.? He will be given IV fluid.? Initially Zofran was ordered but then he states that he did take Zofran orally prior to arrival and that seems to help.? We will hold at this time.? Will check labs including CBC, CMP and lipase and reevaluate. Patient is now complain of some or nausea.? He is given a dose of IV Reglan as his gastric emptying study did show some slowing.? Case is discussed with GI, Dr. Mclain and I also reviewed his gastric emptying results.? He recommends starting the patient on daily PPI as well as Reglan 5 mg 3 times daily.? Patient be prescribed this.? Patient then does complain of some mild jitteriness after receiving the Reglan and is ordered Benadryl however by the time the nurse came in with the Benadryl and his symptoms have resolved.? Patient is able to take p.o. in the ER.? He continues to have a benign abdominal exam.? He has a mild leukocytosis which I suspect is reactive but no significant electrolyte a bnormalities.?? Assessment & Plan Assessment/Plan (1) Nausea & vomiting: PLAN: He will undergo an EGD to evaluate his upper GI tract. As he does have gastroparesis. We will see if there is anything regarding his anatomy that may be causing his nausea or vomiting or if this is secondary to marijuana hyperemesis. He was explained alternatives, risk, benefits including nondistended bleeding, infection, sepsis, perforation, need for mergers or . He will have an ASA of 1.
--- NOTE | 2023-01-18 16:56 | OP.EGD_ITS ---
Patient Name: Kt Acosta Procedure Date: 01/18/2023 4:24 PM Date of : 2000 Age: 22 Procedure: Upper GI endoscopy Indications: Epigastric abdominal pain, Functional Dyspepsia, Failure to respond to medical treatment Providers: Juan Manuel Mclain DO Medicines: Monitored Anesthesia Care Patient Profile: This is a 22 year old male. Refer to note in patient chart for documentation of history and physical. Patient has symptoms of chronic epigastric abdominal pain and chronic nausea. Complications: No immediate complications. Procedure: Pre-Anesthesia Assessment: - Prior to the procedure, a History and Physical was performed, and patient medications and allergies were reviewed. The patient is competent. The risks and benefits of the procedure and the sedation options and risks were discussed with the patient. All questions were answered and informed consent was obtained. Patient identification and proposed procedure were verified by the physician in the pre-procedure area. Mental Status Examination: alert and oriented. Airway Examination: normal oropharyngeal airway and neck mobility. Respiratory Examination: clear to auscultation. CV Examination: normal. Prophylactic Antibiotics: The patient does not require prophylactic antibiotics. Prior Anticoagulants: The patient has taken no previous anticoagulant or antiplatelet agents. ASA Grade Assessment: II - A patient with mild systemic disease. After reviewing the risks and benefits, the patient was deemed in satisfactory condition to undergo the procedure. The anesthesia plan was to use monitored anesthesia care (MAC). Immediately prior to administration of medications, the patient was re-assessed for adequacy to receive sedatives. The heart rate, respiratory rate, oxygen saturations, blood pressure, adequacy of pulmonary ventilation, and response to care were monitored throughout the procedure. The physical status of the patient was re-assessed after the procedure. After obtaining informed consent, the endoscope was passed under direct vision. Throughout the procedure, the patient's blood pressure, pulse, and oxygen saturations were monitored continuously. The gastroscope was introduced through the mouth, and advanced to the second part of duodenum. The upper GI endoscopy was accomplished without difficulty. The patient tolerated the procedure well. Scope In: 4:38:20 PM Scope Out: 4:42:24 PM Total Procedure Duration Time 0 hours 4 minutes 4 seconds Findings: The examined esophagus was normal. A small hiatal hernia was present. Patchy mild inflammation characterized by erosions and erythema was found in the gastric body. Biopsies were taken with a cold forceps for histology. Verification of patient identification for the specimen was done. Estimated blood loss was minimal. The second portion of the duodenum was normal. Biopsies were taken with a cold forceps for histology. Verification of patient identification for the specimen was done. Estimated blood loss was minimal. Impression: - Normal esophagus. - Small hiatal hernia. - Bile gastritis. Biopsied. - Normal second portion of the duodenum. Biopsied. Recommendation: - Discharge patient to home. - Resume previous diet. - Continue present medications. - Await pathology results. Procedure Code(s): --- Professional --- 93270, Esophagogastroduodenoscopy, flexible, transoral; with biopsy, single or multiple CPT copyright 2017 [employer]. All rights reserved. The codes documented in this report are preliminary and upon shoe cleaner review may be revised to meet current compliance requirements. Juan Manuel Mclain DO 01/18/2023 4:56:05 PM This report has been signed electronically. Number of Addenda: 0 Note Initiated On: 01/18/2023 4:24 PM
--- NOTE | 2023-01-18 16:57 | OP.CCLET_ITS ---
01/18/2023 Nitin Ronquillo [address] [place] [address] Re : Upper GI endoscopy procedure for Kt Acosta Dear Dr. Ronquillo This procedure was performed on Wednesday, January 18, 2023. My impressions and recommendations are as follows: Impressions : - Normal esophagus. - Small hiatal hernia. - Bile gastritis. Biopsied. - Normal second portion of the duodenum. Biopsied. Recommendations : - Discharge patient to home. - Resume previous diet. - Continue present medications. - Await pathology results. My findings are described in the full procedure note, which is enclosed. If I can be of further assistance, please feel free to contact me at . Sincerely, Juan Manuel Mclain, 01/18/2023 4:56:05 PM This report has been signed electronically.
== END 2023-01-18 17:49 | disposition home or self-care (01) ==
LOC: EN 14:07 → AC 14:08
PROVIDERS: PCP Family Medicine; Referring Provider Family Medicine; Visit Provider Internal Medicine Gastroenterology
PROC: 0DJ08ZZ Inspection of Upper Intestinal Tract, Via Natural or Artificial Opening Endoscopic (ICD-10-PCS; CPT 43235; principal; 2023-01-18 15:25)
DX: K44.9 Diaphragmatic hernia without obstruction or gangrene (principal); F17.290 Nicotine dependence, other tobacco product, uncomplicated; K29.70 Gastritis, unspecified, without bleeding; K21.9 Gastro-esophageal reflux disease without esophagitis; Z79.899 Other long term (current) drug therapy
CPT/HCPCS: 43239; 88305; 88342; J7120

== ENCOUNTER 2023-06-07 14:24 | Emergency (ER) | payer OTHER, SELFPAY ==
[2023-06-07 14:24] VITALS: BP 146/73; PULSE 78; RESP 18; TEMP 36.7; O2SAT 100; BMI 17.4
[2023-06-07] MEDS: Famotidine 200 MG/20 ML MDV 20 MG in 0.9% Normal Saline (Pres. free 8 ML 300 MG IV (16:27)
[2023-06-07] MEDS: LORazepam 2 MG/ML Syringe 0.5 MG IV (16:27)
[2023-06-07] MEDS: Ondansetron 4 MG/2 ML Vial IV (16:27)
--- NOTE | 2023-06-07 16:27 | ED.VIS.GI ---
HPI HPI - GI History of Present Illness Chief Complaint: Nausea/Vomiting/Diarrhea Narrative Narrative: 22-year-old male with history of IBS and cyclic PFSH PFSH Medical History Gastric reflux Gastroparesis History of IBS Marijuana use Vapes nicotine containing substance Home Medications pantoprazole 20 mg tablet,delayed release 20 mg PO DAILY #30 tabs 12/31/22 [Rx Last Taken 01/18/23 10:00] Allergy/AdvReac Type Severity Reaction Status Date / Time No Known Allergies Allergy Verified 06/07/23 14:25 Social History household members: family Smoking Status: Current every day smoker tobacco type: e-cigarettes alcohol intake: current alcohol intake frequency: holidays/special occasions only substance use type: does not use EXAM Physical Exam Const Vital Signs: 06/07/23 14:24 Temperature 98.1 F Temperature Source Temporal Pulse Rate 78 Respiratory Rate 18 Blood Pressure 146/73 H Blood Pressure Mean 97 Pulse Ox 100 Oxygen Delivery Method Room Air Positive well nourished General Appearance ED: NAD; Negative for pallor HEENT Reports moist mucous membranes normocephalic and atraumatic Eyes General Eye ED: Negative for pale conjunctiva Resp normal respiratory effort and clear to auscultation bilaterally Auscultation: Negative for rales, rhonchi or wheezes Cardio regular rate and regular rhythm GI non-tender, non-distended and no masses Neuro CN's II-XII intact bilaterally, moves all extremities and no sensory deficits noted Sensorium / Orientation: alert Motor Exam: strength 5/5 throughout Psych mental status grossly normal Skin General Skin Exam: Negative for jaundice or pallor MDM MDM MDM Narrative Medical decision making narrative: 22-year-old male presenting with nausea/vomiting. Patient states he has a history of IBS and previously had cannabinoid hyperemesis syndrome due to marijuana but states he does not use this anymore. Vital signs are stable he is afebrile. Abdomen is benign. Differential diagnosis includes but is not limited to cannabinoid hyperemesis syndrome, cyclic vomiting syndrome, IBS, food poisoning. Patient be symptomatically treated with cyclic vomiting order set. He was given 2 L of IV fluids. On reevaluation at 6:45 PM the patient is feeling much better. I have his urinalysis did not show any evidence of infection but does show urine ketones. No elevation in glucose. His urine drug screen came back positive for cannabinoids. Recommend follow-up Dr. Mclain. He is given a prescription for Zofran. Impression: 1. Cannabinoid hyperemesis syndrome Lab Data Attestation: I reviewed the patient's lab results. Labs: Laboratory Results - last 24 hr 06/07/23 16:44 Urine Color Yellow Urine Clarity Sl. Cloudy Urine pH 8.0 Ur Specific [place] 1.010 Urine Protein 30 H Urine Glucose (UA) Normal Urine Ketones 150 A* Urine Occult Blood 150 H Urine Nitrite Negative Urine Bilirubin Negative Urine Urobilinogen Normal Ur Leukocyte Esterase 25 H Urine RBC 10-25 SEEN Urine WBC 0-5 SEEN Ur Squamous Epith Cells 0 SEEN Urine Bacteria RARE Urine Mucus 1+ Urine Opiates Screen NEGATIVE Urine Methadone Screen NEGATIVE Ur Barbiturates Screen NEGATIVE Ur Phencyclidine Scrn NEGATIVE Ur Amphetamines Screen NEGATIVE MDMA (Ecstasy) Screen NEGATIVE U Benzodiazepines Scrn NEGATIVE Urine Cocaine Screen NEGATIVE U Cannabinoids Screen POSITIVE H Ur Drug Screen Comment Discharge Plan Triage Chief Complaint: Nausea/Vomiting/Diarrhea ED Provider: Reyes Finch Dx/Rx/DC Orders Instructions: ED Cyclic Vomiting Syndrome Prescriptions: No Action pantoprazole 20 mg tablet,delayed release (DR/EC) 20 mg PO DAILY Qty: 30 0RF Primary Care Provider: Nitin Ronquillo Referrals: Nitin Ronquillo MD [Primary Care Provider] - Juan Manuel Mclain DO [Med Staff - Active Staff] - As Needed Disposition Disposition: Home, Self Care
[2023-06-07] MEDS: 0.9% Normal Saline 1,000 ML 999 ML IV ×2 (16:40→17:44)
[2023-06-07 16:45] LABS: Squamous Epithelial Cells - UA 0 SEEN /hpf (0-5)
[2023-06-07 16:50] LABS: Color, Urine Yellow (Yellow); Glucose, Dipstick Normal (Normal); Leukocyte Esterase-Dipstick 25 /ul (Negative); Nitrite-Dipstick Negative (Negative); Occult Blood-Urine 150 /ul (Negative); Protein-Dipstick 30 mg/dl (Negative); Urine Bilirubin Dipstick Negative (Negative); Urine Clarity Sl. Cloudy (Clear); Urine Urobilinogen Normal (Normal)
[2023-06-07 17:26] LABS: Ketone-Dipstick 150 mg/dl (Negative)
[2023-06-07 17:32] LABS: Bacteria RARE /hpf (None Seen); Mucous, Urine 1+ /hpf (<or=2+); Red Blood Cells-Urine 10-25 SEEN /hpf (0-5); White Blood Cells 0-5 SEEN /hpf (0-5)
[2023-06-07 17:40] LABS: Amphetamine Urine VISTA NEGATIVE (<1000 ng/mL); Barbiturate Urine VISTA NEGATIVE (< 200 ng/mL); Benzodiazepine Urine VISTA NEGATIVE (< 200 ng/mL); Cocaine Urine VISTA NEGATIVE (< 300 ng/mL); Ecstacy Urine VISTA NEGATIVE (< 500 ng/mL); Methadone Urine VISTA NEGATIVE (< 300 ng/mL); PCP Urine VISTA NEGATIVE (< 25 ng/mL); THC Urine VISTA POSITIVE (< 50 ng/mL); Vista UDS pH Range 7
[2023-06-07 18:54] VITALS: BP 108/51; PULSE 65; RESP 16; O2SAT 98
== END 2023-06-07 19:51 | disposition home or self-care (01) ==
PROVIDERS: Emergency Provider Student in an Organized Health Care Education/Training Program; PCP Family Medicine; Visit Provider Student in an Organized Health Care Education/Training Program
DX: F12.988 Cannabis use, unspecified with other cannabis-induced disorder (principal); F17.210 Nicotine dependence, cigarettes, uncomplicated
CPT/HCPCS: 80307; 81001; 96361; 96374; 96375; 99283; J7030; A4216; J2405; J3490

== ENCOUNTER → 2023-06-29 | Outpatient (CLI) | payer OTHER, SELFPAY ==
--- NOTE | 2023-06-29 09:48 | NM_ITS ---
CLINICAL: 22-year-old male with history of gastroparesis. SEMI-SOLID PHASE 99m Tc SULFUR COLLOID GASTRIC EMPTYING STUDY COMPARISON: Previous semisolid phase gastric emptying examination dated 12/08/2022 FINDINGS: The patient was administered 1.2 mCi of 99m Tc sulfur colloid mixed with oatmeal and consumed per os. Image acquisitions in the anterior-posterior projections were obtained for 60 minutes. There is prompt visualization of the stomach. There is no gastroesophageal reflux identified. The T ? linear fit was calculated to be 49.9 minutes, (Normal: 12-56 minutes) compared to 63.83 minutes defined on the examination dated 12/08/2022. NM/Gastric Emptying Study IMPRESSION: 1. NORMAL 99m Tc sulfur colloid semi-solid phase (oatmeal) gastric emptying imaging examination. A. There is normal and preserved semi-solid phase gastric emptying compared to normal controls with maintained first order kinetics throughout all components of the examination. (Zaida et al, J Nucl Med Tech 38: 186, 2010). B. Compared to the study dated 12/08/2022, there is current normal semisolid phase gastric emptying as articulated above. Electronically Signed: Mario Wong, at 20:50 EDT ,
== END | disposition home or self-care (01) ==
PROVIDERS: PCP Family Medicine; Referring Provider Internal Medicine Gastroenterology; Visit Provider Internal Medicine Gastroenterology
DX: R19.5 Other fecal abnormalities (principal); R11.2 Nausea with vomiting, unspecified
CPT/HCPCS: 78264; A9541

== ENCOUNTER → 2023-07-01 | Outpatient (CLI) | payer OTHER, SELFPAY ==
--- NOTE | 2023-07-01 09:56 | US_ITS ---
STUDY: ABDOMINAL ULTRASOUND - RIGHT UPPER QUADRANT; ELASTOGRAPHY REASON FOR VISIT: Male, 22 years old. Abdominal pain. TECHNIQUE: Ultrasound evaluation of the right upper quadrant was performed with real-time and static hicks-scale imaging. Point quantification shear wave elastography was performed ([place]). TECHNICAL QUALITY: Adequate. COMPARISON: None. FINDINGS: Liver: The liver measures 13.4 cm. There is normal echogenicity of the liver. The bile ducts are within normal limits. There is hepatic color flow. The direction of portal flow is hepatopetal. There is a 2.4 cm x 0.9 cm x 1.3 cm slightly echogenic nodule adjacent to the falciform ligament. This may represent a small hemangioma. Median liver stiffness measured 5.2 kPa. Gallbladder: Normal distended gallbladder. The gallbladder wall measures 1.4 mm. There is a negative sonographic Michaels''s sign. There is no pericholecystic fluid. There are no gallstones. Small amount of sludge is seen in the gallbladder lumen. Common Bile Duct (C.B.D.): The common bile duct measures 2 mm. Pancreas: The pancreas is obscured due to overlying bowel gas. Right Kidney: Normal size of the right kidney. The right kidney measures 10.27 x 5 cm x 5.8 cm. Normal renal cortex. The right cortex measures 1.3 cm. There is no demonstrated renal mass or cyst. There is no right hydronephrosis. US/Abdomen Limited IMPRESSION: 1. Liver stiffness measures 5.2 kPa compatible with F0-F1 (Normal to mild liver fibrosis) Metavir score. Electronically Signed: Anastacio Condon MD at 16:31 EDT ,
== END | disposition home or self-care (01) ==
LOC: US 09:54
PROVIDERS: PCP Family Medicine; Referring Provider Internal Medicine Gastroenterology; Visit Provider Internal Medicine Gastroenterology
DX: R19.5 Other fecal abnormalities (principal); R11.2 Nausea with vomiting, unspecified; K75.81 Nonalcoholic steatohepatitis (NASH)
CPT/HCPCS: 76705; 76981

== ENCOUNTER 2024-11-16 06:22 | Emergency (ER) | payer OTHER, SELFPAY ==
[2024-11-16 06:24] VITALS: BP 145/93; PULSE 67; RESP 18; TEMP 36.3; O2SAT 99; BMI 21.2
--- NOTE | 2024-11-16 06:40 | RAD_ITS ---
STUDY: X-RAY - RIGHT HAND REASON FOR EXAM: Male, 24 years old. Injury. TECHNIQUE: 3 views of the right hand. COMPARISON: None. FINDINGS: Normal radiocarpal articulation. Normal distal radioulnar joint. Intact visualized carpal bones. There is a 6 mm cyst in the distal pole of the scaphoid. Normal carpal articulations. Normal carpometacarpal articulation of the thumb. Normal second through fifth carpometacarpal joints. There is a fracture through the fifth metacarpal neck with severe anterior angulation. Normal first through fourth metacarpi. Normal metacarpophalangeal joint of the thumb. Normal interphalangeal joint of the thumb. Normal proximal and distal phalanges of the thumb. Normal metacarpophalangeal joints of the second through fifth fingers. Normal proximal and distal interphalangeal joints of the second through fifth fingers. Normal phalanges of the second through fifth fingers. There is soft tissue swelling along the medial aspect of the hand. RAD/Hand Min 3 Views IMPRESSION: Fifth metacarpal neck fracture with severe anterior angulation. Soft tissue swelling along the medial aspect of the hand. Electronically Signed: Luis F Cramer MD at 8:15 EST ,
[2024-11-16 07:23] VITALS: BP 128/78; PULSE 64; RESP 18; TEMP 37.1; O2SAT 99
--- NOTE | 2024-11-16 07:43 | EDS_ITS ---
HPI History of Present Illness Chief Complaint: Upper Extremity Injury Informant: patient Narrative Narrative: Patient is a [id number] 24-year-old male. He states roughly an hour ago he was pushing boxes over into a corner at work when his hand slipped and he struck the metal shelving unit. He states he developed sudden pain and swelling of his right hand and had concern for fracture and therefore was sent in for evaluation. He denies any new injuries and he denies any numbness tingling or weakness PFSH PFSH Medical History Gastric reflux Gastroparesis History of IBS Marijuana use Vapes nicotine containing substance Home Medications ?Medication ?Instructions ?Recorded ?Last Taken ?Type NK 11/16/24 Unknown History Allergy/AdvReac Type Severity Reaction Status Date / Time No Known Allergies Allergy Verified 11/16/24 06:28 Social History household members: family Smoking Status: Current every day smoker tobacco type: e-cigarettes alcohol intake: current alcohol intake frequency: holidays/special occasions only substance use type: does not use ROS ROS ED Constitutional Constitutional ED: Denies chills or fever(s) ENT ENT ED: Denies sore throat Cardiovascular Cardiovascular: Denies chest pain Respiratory/Chest Respiratory/Chest: Denies cough or dyspnea Gastrointestinal Gastrointestinal: Denies abdominal pain, diarrhea, nausea or vomiting Genitourinary Genitourinary ED: Denies dysuria Musculoskeletal Musculoskeletal: Reports other Details: Positive right hand pain and swelling Integumentary Denies Abrasions Neurologic Neurologic: Denies headache(s), paresthesias or weakness Hematologic/Lymphatic Hematologic/Lymphatic: Denies easy bleeding or easy bruising EXAM Physical Exam Const Vital Signs: 11/16/24 06:24 Temperature 97.4 F L Temperature Source Oral Pulse Rate 67 Respiratory Rate 18 Blood Pressure 145/93 H Blood Pressure Mean 110 Pulse Ox 99 Oxygen Delivery Method Room Air Positive well nourished and well developed General Appearance ED: well developed HEENT HEENT Narrative: Normocephalic atraumatic Eyes PERRL and EOMs intact bilaterally Neck full ROM and supple Resp normal respiratory effort and clear to auscultation bilaterally Cardio regular rate and regular rhythm Extremity Extremity Narrative: Right upper extremity is neurovascularly intact; AIN/PIN are intact and normal. Patient has soft tissue swelling with apparent deformity along the dorsal aspect of the right hand over top the fifth metacarpal. There is decreased range of motion secondary to pain and swelling. No obvious ligamentous or tendon injury noted. No open wounds. Remainder of the exam is normal Neuro oriented x3, CN's II-XII intact bilaterally, moves all extremities, no focal motor deficits and no sensory deficits noted Sensorium / Orientation: alert Psych mental status grossly normal Skin no rashes or lesions noted Skin Narrative: Soft tissue swelling with ecchymosis over top the dorsal aspect of the right hand at the fifth metacarpal as documented above MDM MDM MDM Narrative Medical decision making narrative: Patient arrived to ER mildly hypertensive but otherwise with stable vitals. He had report of direct trauma to the right hand and physical exam does show soft tissue swelling with apparent deformity concerning for metacarpal fracture versus contusion. Secondary to this a hand x-ray was obtained which confirmed the fracture. As the fracture was displaced the patient was given hematoma block as documented below and then manual reduction was attempted. The patient was placed in a Ortho-Glass splint for stabilization. At this time he is neurovascular intact he is closed he does not have compartment syndrome and therefore there is no need for emergent orthopedic intervention and he can be discharged home with follow-up as an outpatient Patient had the dorsal aspect of his right hand cleaned with chlorhexidine. He was then given a hematoma block using 3 mL of 2% lidocaine with epinephrine. Following this manual reduction with traction was applied to the fifth metacarpal with moderate improvement of the appearance of the deformity. Patient was then placed in a 4 inch Ortho-Glass ulnar gutter splint for stabilization. Following application of the reduction and splint patient had normal capillary refill less than 2 seconds and normal sensation. Patient tolerated procedure well without complication Radiography Diagnostic Testing: X-ray of the right hand as interpreted by emergency medicine physician reveals a 100% displaced and angulated fracture of the distal aspect of the fifth metacarpal Discharge Plan Triage Chief Complaint: Upper Extremity Injury ED Provider: Leroy Whitehead Dx/Rx/DC Orders Clinical Impression: Closed displaced fracture of fifth metacarpal bone of right hand Instructions: ED Boxer Fracture, ED Splint Care, Fiberglass Prescriptions: No Action NK Primary Care Provider: Nitin Ronquillo Referrals: Nitin Ronquillo MD [Primary Care Provider] - Michele Farrell MD [Med Staff - Active Staff] - Activity Restrictions/Additional Instructions: Please follow-up with orthopedic surgeon Dr. Farrell or a orthopedic surgeon directed by Workmen's Compensation as you will potentially need K wire placement or casting secondary to your hand fracture. Wear the splint for fracture stabilization until you are seen by the orthopedic surgeon and return to the ER should you have any further concerns Print Language: Citizen Of [place] Disposition Disposition: Home, Self Care Discharge Date/Time: 11/16/24 08:03
--- NOTE | 2024-11-16 07:45 | RAD_ITS ---
STUDY: X-RAY - RIGHT HAND, 11/16/2024, 7:46 AM REASON FOR EXAM: Male, 24 years old. Post reduction. TECHNIQUE: 4 views of the right hand. COMPARISON: Right hand radiographs dated 11/16/2024, 6:41 AM. FINDINGS: There is a new fiberglass cast/splint over the medial aspect of the hand/wrist. Normal radiocarpal articulation. Normal distal radioulnar joint. Intact visualized carpal bones. There is a persistent 6 mm cyst in the distal pole of the scaphoid. Normal carpal articulations. Normal carpometacarpal articulation of the thumb. Normal second through fifth carpometacarpal joints. There is an unchanged fracture through the fifth metacarpal neck with severe anterior angulation. Normal first through fourth metacarpi. Normal metacarpophalangeal joint of the thumb. Normal interphalangeal joint of the thumb. Normal proximal and distal phalanges of the thumb. Normal metacarpophalangeal joints of the second through fifth fingers. Normal proximal and distal interphalangeal joints of the second through fifth fingers. Normal phalanges of the second through fifth fingers. RAD/Hand Min 3 Views IMPRESSION: New fiberglass cast/splint over the medial aspect of the hand/wrist. Unchanged appearance of fifth metacarpal neck fracture with severe anterior angulation. Electronically Signed: Luis F Cramer MD at 8:20 EST ,
== END 2024-11-16 08:03 | disposition home or self-care (01) ==
PROVIDERS: Emergency Provider Emergency Medicine; PCP Family Medicine; Visit Provider Emergency Medicine
DX: S62.336A Displaced fracture of neck of fifth metacarpal bone, right hand, initial encounter for closed fracture (principal); K21.9 Gastro-esophageal reflux disease without esophagitis; F17.290 Nicotine dependence, other tobacco product, uncomplicated; W22.09XA Striking against other stationary object, initial encounter
CPT/HCPCS: 26605; 73130; 99282